=== PATIENT | female | born 2000 | race Caucasian/White ===

== ENCOUNTER 2020-11-07 02:19 | Emergency (ER) | payer SELFPAY ==
[~2020-11-07] VITALS: Ht 167.6 cm; Wt 64.2 kg
[2020-11-07 02:20] VITALS: BP 114/71
== END 2020-11-07 04:57 | disposition left against medical advice (07) ==
LOC: M ED 02:19
DX: Z53.21 Procedure and treatment not carried out due to patient leaving prior to being seen by health care provider (principal)

== ENCOUNTER → 2020-11-16 | Outpatient (CLI) | payer OTHER ==
--- NOTE | 2020-11-16 12:10 | REP ---
INDICATION: (+) PREG DATING VIABILITY. COMPARISON: None. TECHNIQUE: Transvesical and transvaginal imaging FINDINGS: Within the uterus there is an anechoic structure with increased echoes surrounding it consistent with a decidual reaction. Within the gestational sac there is a tiny focus of echogenic material consistent with a pole the mean crown-rump length measurement of which is consistent with a 6 week 0 day gestational age. Doppler interrogation of the pole shows no evidence of cardiac activity. There is no evidence of a chorionic or subchorionic abnormality. The right ovary measures 3.2 x 2.7 x 2.9 cm and left ovary measures 2.5 x 1.4 x 1.5 cm. The right ovarian RI is 0.47 on the left is 0.61. Within the right ovary there is what is most likely an involuting corpus luteum cyst having a maximal dimension of 2.4 cm. IMPRESSION: Early OB ultrasound as described above. There is no cardiac activity seen at this time. Close follow-up is recommended. <Electronically signed by Mic Butler > 11/16/20 0993
== END ==
LOC: M RAD 11:02
PROVIDERS: ATTEND Nurse Practitioner Family
DX: Z32.01 Encounter for pregnancy test, result positive (principal); Z3A.00 Weeks of gestation of pregnancy not specified